=== PATIENT | male | born 1955 | race Caucasian/White ===

== ENCOUNTER 2020-10-04 12:11 | Outpatient (REF) | payer OTHER, SELFPAY ==
--- NOTE | ~2020-10-04 | XR_ITS ---
EXAMINATION: XR CHEST CLINICAL INFORMATION: Cough COMPARISON: None TECHNIQUE: 2 views of the chest were obtained. FINDINGS: No significant abnormality is noted involving the heart, lungs, mediastinum, bony thorax or soft tissues. XR/XR chest 2V IMPRESSION: Unremarkable examination.
[2020-10-04 14:07] LABS: Glucose Urine UA NEG (NEG); Leukocyte Esterase Urine NEG (NEG); Nitrite Urine NEG (NEG); Specific Gravity - Urine <= 1.005 (1.005-1.025); Urine Blood NEG (NEG); Urine Ketones NEG (NEG); Urine Protein NEG (NEG-TRACE)
[2020-10-04 14:09] LABS: Appearance Urine CLEAR; Color Urine YELLOW
[2020-10-04 14:12] LABS: MANUAL DIFF FLAG NO
[2020-10-04 14:20] LABS: Basophils Percent Auto 0.3 % (0-2); Eosinophils Absolute Auto 0.2 X10*3/uL (0.0-0.4); Eosinophils Percent Auto 2.6 % (0-4); Hematocrit 42.8 % (42-52); Hemoglobin 14.5 g/dl (14.0-18.0); Imm Gran Abs Auto 0.01 X10*3/uL (0.00-0.03); Imm Gran Pct Auto 0.2 % (0.0-0.4); Lymphocytes Absolute Auto 3.1 X10*3/uL (1.2-4.9); Lymphocytes Percent Auto 49.4 % (20-40); Mean Corpuscular HGB Conc 33.9 g/dl (31.0-36.0); Mean Corpuscular Hemoglobin 31.7 pg (27.0-33.0); Mean Corpuscular Volume 93.4 fL (80-98); Mean Platelet Volume 10.6 fL (9.4-12.4); Monocytes Absolute Auto 0.4 X10*3/uL (0.1-1.2); Monocytes Percent Auto 7.1 % (2-11); Neutrophils Absolute Auto 2.5 X10*3/uL (2.0-8.3); Neutrophils Percent Auto 40.4 % (45-73); Platelet Count 205 X10*3/uL (160-400); Red Blood Count 4.58 X10*6/uL (4.60-5.80); Red Cell Distribution Width 12.3 % (11.0-16.0); White Blood Count 6.2 X10*3/uL (4.8-10.8)
[2020-10-04 14:38] LABS: Alanine Aminotransferase 15 U/L (0-40); Albumin Level 4.2 g/dL (3.5-5.0); Alkaline Phosphatase 54 U/L (39-117); Anion Gap 11 (12-20); Aspartate Amino Transferase 19 U/L (5-37); Bilirubin Total 1.3 mg/dL (0.0-1.0); Blood Urea Nitrogen 18 mg/dL (9-16); Calcium 9.3 mg/dL (8.4-10.2); Carbon Dioxide 25 mmol/L (22-29); Chloride 106 mmol/L (96-108); Estimated Glomerular Filt Rate > 60; Glucose Random 91 mg/dL (60-115); Potassium 4.1 mmol/L (3.3-5.1); Sodium 138 mmol/L (135-145); Total Protein 6.8 g/dL (6.5-8.0)
[2020-10-04 15:00] LABS: Prostate Specific Antigen Scr 0.27 ng/mL (<0.05-4.0); TSH reflex Free T4 2.67 uIU/mL (0.32-4.0); Vitamin D 25-OH Total 55.5 ng/mL (>30)
== END 2020-10-04 12:12 | disposition home or self-care (01) ==
LOC: HO.HMGCX 12:11
PROVIDERS: PCP Nurse Practitioner Family; Visit Provider Nurse Practitioner Family
DX: R05 Cough (principal); R82.90 Unspecified abnormal findings in urine; E55.9 Vitamin D deficiency, unspecified; Z12.5 Encounter for screening for malignant neoplasm of prostate
CPT/HCPCS: 36415; 71046; 80053; 81003; 82306; 84153; 84443; 85025; 87086

== ENCOUNTER 2021-11-23 12:29 | Outpatient (REF) | payer OTHER, SELFPAY | END 2021-11-23 12:30 | disposition home or self-care (01) | LOC: HO.HMGCLDS 12:29 | PROVIDERS: PCP Nurse Practitioner Family; Visit Provider Nurse Practitioner Family | DX: Z13.89 Encounter for screening for other disorder (principal) ==

== ENCOUNTER 2023-08-05 15:48 | Outpatient (AMB) | payer MEDICARE, SELFPAY ==
[2023-08-05 15:55] VITALS: BP 128/80; PULSE 91; TEMP 36.8; O2SAT 98; BMI 28.1
--- NOTE | 2023-08-05 15:55 | AM.OFFWIN_ITS ---
Intake Vital Signs 08/05/23 15:55 Height 5 ft 7 in Weight 179 lb 2 oz BMI 28.1 BP 128/80 Blood Pressure Location Rt brachial Position Sitting Pulse 91 Pulse Source Pulse Oximeter Temp 98.2 F Temp Source Oral Pulse Oximetry (%) 98 Oxygen Delivery Method Room Air Intake Visit Reasons: EP Cough, mucus Intake Note: Pt presents to the office today for c/o cough and green mucus, headache , and sinus pressure for about 10-14 days. Patient Tobacco Use Status: Never used Tobacco Allergies No Known Allergies Allergy (Verified 08/05/23 16:27) Medication List - Last Reconciled 08/05/23 by Papo Salgado MD No Known Home Meds HPI EP Cough, mucus HPI Details Patient presents for a sick visit. Reporting symptoms of sinus congestion, sore throat and difficulty swallowing. Low-grade fever. No family member is sick. No recent travel. Patient reports symptoms of malaise and fatigue. Reports not able to hear from both ears. 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 Head: Yes normal to inspection Eyes General: appearance normal, both eyes and all related structures Neck Neck: Yes normal visual inspection Chest Chest palpation & inspection: normal palpation of entire chest wall Resp Effort & Inspection: normal respiratory effort Neuro General: patient oriented x3 Office Procedures Cerumen Removal From which ear canal was the cerumen removed: left Removal: irrigation and otoscope w/curette [id number]-[id number] Wax Removal by Spoon/Curette Assessment & Plan Assessment & Plan (1) Cough: Code(s): R05 - Cough Plan: Antibiotics ordered. Increase fluid intake. Tylenol for aches and pains. If symptoms worsen, follow-up here for a recheck. Plan Patient tolerated the procedure well Orders: Orders AMB Cerumen Removal Today H61.23 - Impacted cerumen, bilateral Medications: New azithromycin take 500 mg today (day 1), then 250 mg for 4 days (days 2-5) PO 6 tabs 0RF Coding Level of Care Code Est Pt Level 3 (40810) Diagnoses Cough R05 CPT Codes Office Procedure - CPT: 22897-Cjf Wax Removal by Spoon/Curette ([id number])
== END 2023-08-05 16:37 | disposition home or self-care (01) ==
PROVIDERS: PCP Nurse Practitioner Family; Visit Provider Internal Medicine
DX: R05.9 Cough, unspecified (principal); H61.22 Impacted cerumen, left ear
CPT/HCPCS: 69210; 99213

== ENCOUNTER → 2023-10-22 15:26 | Outpatient (AMB) | payer MEDICARE, SELFPAY ==
[2023-10-22 15:28] VITALS: BP 128/78; PULSE 82; TEMP 36.8; O2SAT 98; BMI 28.2
--- NOTE | 2023-10-22 15:28 | MHC.PC.OV ---
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 This my 1st time meeting the patient Patient reports frequent headaches over the past 6 months, 3-4 times per week. Patient states that the pain usually starts in his neck, radiates up into his head. Denies any neurological symptoms, denies change in vision, denies dizziness, denies difficulty walking, denies any sensory or motor deficits at all. Denies chest pain denies shortness of breaths. On physical exam patient has paraspinal cervical muscles pain with rotation of neck. He states that he gets relief with ibuprofen Tylenol however he does want to keep taking this medication. He does not want medication at this time. Will obtain cervical spine x-ray. Will obtain labs. The patient will likely be referred physical therapy. 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 1. Little interest or pleasure in doing things: not at all 2. Feeling down, depressed, or hopeless: not at all 3. Trouble falling or staying asleep, or sleeping too much: not at all 4. Feeling tired or having little energy: not at all 5. Poor appetite or overeating: not at all 6. Feeling bad about yourself - or that you are a failure or have let yourself or your family down: not at all 7. Trouble concentrating on things, such as reading the newspaper or watching television: not at all 8. Moving or speaking so slowly that other people could have noticed. Or the opposite - being so fidgety or restless that you have been moving around a lot more than usual: not at all 9. Thoughts that you would be better off or of hurting yourself in some way: not at all Total score: 0 Depression Screening Interpretation: Negative Depression Screening Done: Yes 26674 - PHQ-9 Billing: Yes Source: Developed by Drs. Nikhil Farrar, Naheed Rubio, Rock Varela and colleagues, with an educational ella from [employer]. Thrive Questionnaire Date Thrive assessed: 10/22/23 I am a: Patient What is your living situation today?: I have a steady place to live Within the past 12 months, did the food you bought not last and you didn't have the money to get more?: Never true Within the past 12 months, did you worry whether your food would run out before you got money to buy more?: Never true Do you have trouble paying for medicines?: No Do you have trouble getting transportation to medical appointments?: No Do you have trouble paying your heating and electricity bill?: No Do you have trouble taking care of your child, family member or friend?: No Do you have trouble with day-to-day activities such as bathing, preparing meals, shopping, managing finances, etc.?: No Are you currently unemployed and looking for a job?: No Are you interested in more education?: No Please select the resources that you would like help with: None Currently or been in a relationship where the following occur: no concerns reported THRIVE Score: 0 AUDIT C Alcohol Use Questionnaire (AUDIT-C) 1. How often do you have a drink containing alcohol?: 4 or more times a week 2. How many drinks containing alcohol do you have on a typical day when you are drinking?: 1 or 2 3. How often do you have six or more drinks on one occasion?: Never Total Score: 4 Score Reviewed/Action Taken: Yes KIMI-7 AMB Questionnaire KIMI-7 Date KIMI - 7 assessed: 10/22/23 Feeling nervous, anxious, or on edge: 0 = Not at all Not being able to stop or control worryin = Not at all Worrying too much about different things: 0 = Not at all Trouble relaxin = Not at all Being so restless that it is hard to sit still: 0 = Not at all Becoming easily annoyed or irritable: 0 = Not at all Feeling afraid as if something awful might happen: 0 = Not at all Total KIMI-7 score (0-4 normal; 5-9 mild; 10-14 moderate; 15-21 severe): 0 Source: Developed by Drs. Nikhil Farrar, Naheed Rubio, Rock Varela and colleagues, with an educational ella from [employer]. KIMI-7 Assessment Billing KIMI-7 Assessment Tool: KIMI-7 Assessment 04973 Review of Systems Const All systems reviewed & are unremarkable except as noted in HPI and below Reports headache(s) and Denies weakness Eyes Denies loss of vision ENT Denies dizziness and Reports headache(s) Musc Denies abnormal gait, Denies numbness and Denies tingling Neuro Denies Neuro-related abnormal movements, Denies Abnormal speech present, Denies abnormal gait, Denies dizziness, Reports headache(s), Denies lack of coordination, Denies loss of vision, Denies numbness, Denies Sensory deficit (Neuro), Denies tingling and Denies weakness Physical exam (Primary Care) Vital Signs: Last Vital Signs Temp 98.2 F 10/22/23 15:28 Pulse 82 10/22/23 15:28 BP 128/78 10/22/23 15:28 Pulse Ox 98 10/22/23 15:28 Care Plan Goal for BP management: BP is controlled. BMI result Body Mass Index 28.2 Tobacco/Smoking Status: Tobacco use Status Tobacco use date assessed 09/05/21 10/22/23 15:11 Patient Tobacco Use Status Never used Tobacco 10/22/23 15:11 e-Cigarette/Vaping Use Never Used 10/22/23 15:11 Depression Screening Interpretation: Negative Thrive Assessment: Date of Thrive Assessment Date Thrive assessed 09/05/21 10/22/23 15:11 Currently or been in a relationship where the following occur: no concerns reported Const Other: Appearance: Alert.? Oriented X3.? No acute distress.? Head: Normocephalic, atraumatic, no step-offs or deformities Eyes: Pupils equal, round and reactive to light.? CVS: Normal heart rate and rhythm.? Pulses normal.? Respiratory: No respiratory distress.? Breath sounds normal.? Back: No midline tenderness, no C-spine tenderness, Limited range of motion to rotation. + paraspinal muscle tenderness. Neuro: Oriented X 3.? No motor deficit.? No sensory deficit. CN 2-12 intact Orientation/consciousness: patient oriented x3 Eyes Pupils: Equal, round and reactive pupils present Neuro General: patient oriented x3 and CN's II-XI intact bilaterally Cranial nerves: Yes CN's II-XII intact bilaterally, Yes Facial sensation intact/muscles of mastication intact, Yes Equal, round and reactive pupils present, Yes Normal accommodation reflex present, Yes Bilaterally intact EOM present, Yes Nystagmus not present, Yes Normal facial strength present, Yes Midline tongue present and Yes Ability to bilaterally elevate shoulders present Cognition (Neuro): normal cognition Speech: No Abnormal speech present Gait exam (Neuro): Normal gait present Motor exam (neuro): 5/5 motor strength present throughout Sensory Exam: No Sensory deficit (Neuro) Assessment and Plan Assessment & Plan (1) Upper back pain: Comment: Will obtain cervical neck x-ray. Will refer to physical therapy Code(s): M54.9 - Dorsalgia, unspecified (2) Headache: Comment: Patient does not want medication at this time however when he does utilize [id number] ibuprofen or Tylenol him works with good effect. Likely that this is being exacerbated or caused by cervical paraspinal tenderness. Patient would like to utilize physical therapy. Code(s): R51.9 - Headache, unspecified Qualifiers: Headache type: unspecified Headache chronicity pattern: unspecified pattern Intractability: not intractable Qualified Code(s): R51.9 - Headache, unspecified Plan: Will draw labs. Plan Take your medications as prescribed. If you were prescribed antibiotics today, it is important that you take your medication to their entirety, do not skip any doses, do not finish them early. Follow-up with your primary care provider this week. Present to the emergency department with new or worsening symptoms. Such as fevers, chills, chest pain, shortness of breath, nausea, vomiting, dizziness, headache, vision changes, lethargy In case of emergency call 911 Orders: Orders XR cervical spine 3V Today M54.9 - Dorsalgia, unspecified PT Evaluation and Treatment Today M54.9 - Dorsalgia, unspecified Referrals Neurology Referral R51.9 - Headache, unspecified Coding Level of Care Code Est Pt Level 3 (92057) Diagnoses Upper back pain M54.9 Nonintractable headache, unspecified chronicity pattern, unspecified headache type R51.9 Headache type: unspecified Headache chronicity pattern: unspecified pattern Intractability: not intractable Additional Codes KIMI-7 Assessment Billing - KIMI-7 Assessment Tool: KIMI-7 Assessment [id number] ([id number]) Time Spent (min) 26
== END ==
PROVIDERS: PCP Nurse Practitioner Family; Visit Provider Nurse Practitioner Primary Care
DX: M54.9 Dorsalgia, unspecified (principal); R51.9 Headache, unspecified
CPT/HCPCS: 99213

== ENCOUNTER 2023-10-22 15:38 | Outpatient (REF) | payer MEDICARE, SELFPAY ==
--- NOTE | ~2023-10-22 | XR_ITS ---
EXAMINATION: XR CERVICAL SPINE CLINICAL INFORMATION: Cervicalgia. COMPARISON: Radiograph cervical spine 02/11/2017. TECHNIQUE: 3 views of the cervical spine were obtained. FINDINGS: Stable trace degenerative anterolisthesis at C4-C5. No evidence of acute compression deformity or traumatic subluxation. Multilevel cervical spondylosis that is greatest at the C5-C6 and C6-C7 levels manifested as intervertebral disc height loss, marginal osteophytes, uncovertebral joint spurring and hypertrophic facet arthropathy. Chronic calcification in the region of the nuchal ligaments at the level of C4-C6. No prevertebral soft tissue thickening. Included lung apices are clear. XR/XR cervical spine 3V IMPRESSION: 1. No acute compression deformity or traumatic subluxation. 2. Moderate to severe multilevel cervical spondylosis that is greatest at C5-C6 and C6-C7.
== END 2023-10-22 15:39 | disposition home or self-care (01) ==
LOC: HO.HMGCX 15:38
PROVIDERS: PCP Nurse Practitioner Family; Visit Provider Nurse Practitioner Primary Care
DX: M54.9 Dorsalgia, unspecified (principal)
CPT/HCPCS: 72040

== ENCOUNTER 2023-10-23 07:16 | Outpatient (REF) | payer MEDICARE, SELFPAY ==
[2023-10-23 11:13] LABS: MANUAL DIFF FLAG NO
[2023-10-23 11:32] LABS: Basophils Percent Auto 0.5 % (0-2); Eosinophils Absolute Auto 0.1 X10*3/uL (0.0-0.4); Eosinophils Percent Auto 2.3 % (0-4); Hematocrit 46.8 % (42.0-52.0); Hemoglobin 16.1 g/dl (14.0-18.0); Imm Gran Abs Auto 0.01 X10*3/uL (0.00-0.03); Imm Gran Pct Auto 0.2 % (0.0-0.4); Lymphocytes Percent Auto 47.6 % (20-40); Mean Corpuscular HGB Conc 34.4 g/dl (31.0-36.0); Mean Corpuscular Hemoglobin 31.4 pg (27.0-33.0); Mean Corpuscular Volume 91.4 fL (80.0-98.0); Mean Platelet Volume 10.5 fL (9.4-12.4); Monocytes Absolute Auto 0.5 X10*3/uL (0.1-1.2); Neutrophils Absolute Auto 2.6 x10*3/uL (2.0-8.3); Neutrophils Percent Auto 41.4 % (45-73); Platelet Count 215 X10*3/uL (160-400); Red Blood Count 5.12 X10*6/uL (4.60-5.80); Red Cell Distribution Width 12.4 % (11.0-16.0); White Blood Count 6.2 X10*3/uL (4.8-10.8)
[2023-10-23 11:32] LABS: Appearance Urine Clear; Color Urine Yellow; Glucose Urine UA Negative (Negative); Leukocyte Esterase Urine Negative (Negative); Nitrite Urine Negative (Negative); Urine Blood Negative (Negative); Urine Ketones Negative (Negative); Urine Protein Negative (Neg-Trace)
[2023-10-23 11:47] LABS: Alanine Aminotransferase 17 U/L (0-40); Albumin Level 4.4 g/dL (3.5-5.0); Alkaline Phosphatase 56 U/L (39-117); Anion Gap 12 (12-20); Aspartate Amino Transferase 18 U/L (5-37); Bilirubin Total 1.3 mg/dL (0.0-1.0); Blood Urea Nitrogen 22 mg/dL (9-16); Calcium 9.9 mg/dL (8.4-10.2); Carbon Dioxide 27 mmol/L (22-29); Chloride 106 mmol/L (96-108); Cholesterol 237 mg/dL (<200); Estimated Glomerular Filt Rate > 60; Glucose Fasting 96 mg/dL (60-99); HDL Cholesterol 47 mg/dL (>40); LDL Cholesterol Calculated 172 mg/dL (<100); Potassium 4.8 mmol/L (3.3-5.1); Sodium 140 mmol/L (135-145); Total Protein 7.4 g/dL (6.5-8.0); Triglycerides 94 mg/dL (<150)
[2023-10-23 11:56] LABS: Prostate Specific Antigen Scr 0.37 ng/mL (<0.05-4.0)
[2023-10-23 12:08] LABS: TSH reflex Free T4 3.33 uIU/mL (0.32-4.0); Vitamin D 25-OH Total 86.8 ng/mL (>30)
== END 2023-10-23 07:17 | disposition home or self-care (01) ==
LOC: HO.HMGCLDS 07:16
PROVIDERS: PCP Nurse Practitioner Family; Visit Provider Nurse Practitioner Family
DX: Z00.00 Encounter for general adult medical examination without abnormal findings (principal); E55.9 Vitamin D deficiency, unspecified; Z12.5 Encounter for screening for malignant neoplasm of prostate
CPT/HCPCS: 36415; 80053; 80061; 81003; 82306; 84153; 84443; 85025

== ENCOUNTER 2023-12-16 13:00 | Outpatient (RCR) | payer MEDICARE, SELFPAY ==
--- NOTE | 2023-12-06 08:57 | MHC.PT.EP ---
[facility] [place] Office [place] Office [place] Office [address] Luis Armando Palomino [address] [phone] F: [phone] F: [phone] F: [phone] F: [phone] Physical Therapy Plan of Care Date of Evaluation: 12/06/23 Date of Surgery: Diagnosis: Dorsalgia upper back pain Assessment: 67 y/o male referred to PT with dorsalgia. S/s consistent with cervical dysfunction resulting in pain with ADL's, sitting, standing, phone use. Examination shows decreased cervical ROM, decreased thoracic ROM, scapular weakness, muscle spasm, and pain. Recommend PT 2x/week for 5 weeks to address impairments, implement HEP, and optimize functional mobility. 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 Manual therapy to restore motion and function. Therapeutic exercise to improve strength and flexibility. Neuromuscular re-education for posture and balance. Therapeutic activities to return to functional activities of daily living. Electronically signed by: Cristina Maharaj PT Please sign and return to therapist. Thank you for your referral.
--- NOTE | 2024-02-03 09:32 | MHC.PT.DC ---
[facility] [place] Office [place] Office [place] Office [address] Luis Armando Palomino [address] [phone] F: [phone] F: [phone] F: [phone] F: [phone] Physical Therapy Discharge Report Diagnosis: Dorsalgia upper back pain Date of Surgery: Date of Evaluation: 12/06/23 Date of Discharge: 02/03/24 Treatments to Date: 2 Cancellations to Date: 2 No Shows to Date: 1 Discharge Status: Patient Elected to Stop Visit Non-compliance Discharge Summary: Pt did not f/u with further visits following second visit and is d/c at this time. Electronically signed by: Cristina Maharaj PT Please sign and return to therapist. Thank you for your referral.
== END 2024-02-03 09:32 | disposition home or self-care (01) ==
LOC: HO.PTCHIC 13:00
PROVIDERS: PCP Nurse Practitioner Family; Visit Provider Nurse Practitioner Primary Care
DX: M54.9 Dorsalgia, unspecified (principal)
CPT/HCPCS: 97110; 97140; 97161

== ENCOUNTER 2023-12-18 09:39 | Outpatient (AMB) | payer MEDICARE, SELFPAY ==
--- NOTE | 2023-12-18 09:45 | A.OFFPC_ITS ---
Vital Signs 12/18/23 09:46 Height 5 ft 7 in Weight 172 lb BMI 26.9 BP 120/72 Blood Pressure Location Rt brachial Position Sitting Pulse 73 Pulse Source Pulse Oximeter Pulse Oximetry (%) 97 Oxygen Delivery Method Room Air Intake Visit Reasons: Annual PE Intake Note: pt is here for annual exam Worm Grower Required: No Accompanied by: Self / Same As Patient Allergies No Known Allergies Allergy (Verified 12/18/23 09:54) Medication List - Last Reconciled 12/18/23 by RADHA García No Known Home Meds Tobacco use date assessed: 10/22/23 Fall risk assessment: No Falls in past year Last assessed Fall Risk: 12/18/23 Dental Screening Dental Screen Date: 10/22/23 HPI Annual PE HPI Details Pt is here for a PE. Will order labs. Colon screen is up to date. PSA is up to date. Denies dribbling with urination, weak stream, and frequent nocturia. Pt c/o ED. Will check testosterone. Will also send sildenafil. refuses MIKALA today. 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 1. Little interest or pleasure in doing things: not at all 2. Feeling down, depressed, or hopeless: not at all 3. Trouble falling or staying asleep, or sleeping too much: not at all 4. Feeling tired or having little energy: not at all 5. Poor appetite or overeating: not at all 6. Feeling bad about yourself - or that you are a failure or have let yourself or your family down: not at all 7. Trouble concentrating on things, such as reading the newspaper or watching television: not at all 8. Moving or speaking so slowly that other people could have noticed. Or the opposite - being so fidgety or restless that you have been moving around a lot more than usual: not at all 9. Thoughts that you would be better off or of hurting yourself in some way: not at all Total score: 0 Depression Screening Interpretation: Negative Depression Screening Done: Yes 76484 - PHQ-9 Billing: Yes Source: Developed by Drs. Nikhil Farrar, Naheed Rubio, Rock Varela and colleagues, with an educational ella from [employer]. Thrive Questionnaire Date Thrive assessed: 12/18/23 I am a: Patient What is your living situation today?: I have a steady place to live Within the past 12 months, did the food you bought not last and you didn't have the money to get more?: Never true Within the past 12 months, did you worry whether your food would run out before you got money to buy more?: Never true Do you have trouble paying for medicines?: No Do you have trouble getting transportation to medical appointments?: No Do you have trouble paying your heating and electricity bill?: No Do you have trouble taking care of your child, family member or friend?: No Do you have trouble with day-to-day activities such as bathing, preparing meals, shopping, managing finances, etc.?: No Are you currently unemployed and looking for a job?: No Are you interested in more education?: No Please select the resources that you would like help with: None Currently or been in a relationship where the following occur: No concerns reported THRIVE Score: 0 AUDIT C Alcohol Use Questionnaire (AUDIT-C) 1. How often do you have a drink containing alcohol?: 2-3 times a week 2. How many drinks containing alcohol do you have on a typical day when you are drinking?: 1 or 2 3. How often do you have six or more drinks on one occasion?: Never Total Score: 3 Score Reviewed/Action Taken: Yes KIMI-7 AMB Questionnaire KIMI-7 Date KIMI - 7 assessed: 12/18/23 Feeling nervous, anxious, or on edge: 0 = Not at all Not being able to stop or control worryin = Not at all Worrying too much about different things: 0 = Not at all Trouble relaxin = Not at all Being so restless that it is hard to sit still: 0 = Not at all Becoming easily annoyed or irritable: 0 = Not at all Feeling afraid as if something awful might happen: 0 = Not at all Total KIMI-7 score (0-4 normal; 5-9 mild; 10-14 moderate; 15-21 severe): 0 Source: Developed by Drs. Nikhil Farrar, Naheed Rubio, Rock Varela and colleagues, with an educational ella from [employer]. KIMI-7 Assessment Billing KIMI-7 Assessment Tool: KIMI-7 Assessment 58411 Review of Systems Const Denies chills and Denies fever(s) Eyes Denies blurry vision ENT Denies vertigo, Denies dizziness and Denies sore throat Card Denies chest pain at rest, Denies chest pain with activity, Denies diaphoresis, Denies dyspnea and Denies dyspnea on exertion Resp Denies cough, Denies dyspnea, Denies dyspnea on exertion and Denies wheezing GI Denies abdominal pain, Denies melena, Denies hematochezia, Denies constipation, Denies diarrhea and Denies loose stools Denies hematuria Musc Denies numbness and Denies tingling Skin/Breast Denies lesions Neuro Denies vertigo, Denies dizziness, Denies numbness and Denies tingling Psych Denies anxiety, Denies depression, Denies homicidal ideation, Denies suicidal ideation and Denies other (substance abuse) Aller/Immun Denies wheezing Physical exam (Primary Care) Vital Signs: Last Vital Signs Pulse 73 12/18/23 09:46 BP 120/72 12/18/23 09:46 Pulse Ox 97 12/18/23 09:46 Oxygen Delivery Method Room Air 12/18/23 09:46 BMI result Body Mass Index 26.9 Tobacco/Smoking Status: Tobacco use Status Tobacco use date assessed 10/22/23 12/18/23 09:47 Patient Tobacco Use Status Never used Tobacco 12/18/23 09:47 e-Cigarette/Vaping Use Never Used 12/18/23 09:47 PHQ-9: PHQ-9 Score PHQ-9: Total score 0 12/18/23 09:54 Depression Screening Interpretation: Negative Thrive Assessment: Date of Thrive Assessment Date Thrive assessed 12/18/23 12/18/23 09:47 Currently or been in a relationship where the following occur: No concerns reported Const General: cooperative Nutritional Appearance: well nourished Orientation/consciousness: patient oriented x3 HENMT Head: Yes normal to inspection, Yes normocephalic and Yes atraumatic Ears: TM's normal bilaterally Eyes General: appearance normal, both eyes and all related structures Alignment and Position: alignment normal and position normal Neck Neck: Yes normal visual inspection and Yes no lymphadenopathy Thyroid: Thyroid normal Resp Effort & Inspection: normal respiratory effort Auscultation: clear to auscultation bilaterally Cardio Rate: regular rate Rhythm: regular rhythm Heart sounds: S1 normal heart sound present, S2 normal heart sound present and no murmurs GI Palpation (GI): Soft to palpation and nontender Auscultation: normal bowel sounds Male General Exam: Yes normal external exam Penis: normal penis Scrotum: scrotum normal, testes descended bilaterally and no inguinal hernias Testes: no testicular mass Skin Rashes: no rashes Neuro General: patient oriented x3, moves all extremities, no focal motor deficits and deep tendon reflexes 2+ bilaterally Romberg Test: Negative Psych Appearance: grossly normal Mental Status: mental status grossly normal Speech and movement: Normal speech and movement present Affect: normal affect Attitude: cooperative Thought process: Normal thought process present Thought content: Normal thought content present Insight: Good insight present (Psych) Judgement: Good judgement present (Psych) Assessment and Plan Assessment & Plan (1) Physical exam: Code(s): Z00.00 - Encounter for general adult medical examination without abnormal findings Plan: Labs ordered (2) Erectile dysfunction: Code(s): N52.9 - Male erectile dysfunction, unspecified Plan: sildenafil sent to try Plan The patient agreed to the use of a medical transcriptionist for this encounter. Scribed for RADHA Munoz by Mojgan Malik medical transcriptionist, on 12/18/2023 at 10:00 EST. Orders: Orders Lipid Panel Today Z00.00 - Encounter for general adult medical examination without abnormal findings Complete Blood Count Auto Diff Today Z00.00 - Encounter for general adult medical examination without abnormal findings Comprehensive Robson. Panel Fast Today Z00.00 - Encounter for general adult medical examination without abnormal findings TSH reflex Free T4 Today Z00.00 - Encounter for general adult medical examination without abnormal findings UA CC w/rflx Micro + Cult Today Z00.00 - Encounter for general adult medical examination without abnormal findings Testosterone, Free/Total Today N52.9 - Male erectile dysfunction, unspecified Medications: New sildenafil administer 30 minutes to 4 hours before activity 25 mg PO DAILY PRN 12 tabs 0RF sexual activity sildenafil administer 30 minutes to 4 hours before activity 25 mg PO DAILY PRN 12 tabs 0RF sexual activity Coding Level of Care Code Est Pt Prev Care >65y(14700) Diagnoses Physical exam Z00.00 Erectile dysfunction N52.9 Additional Codes KIMI-7 Assessment Billing - KIMI-7 Assessment Tool: KIMI-7 Assessment 18835 ([id number])
[2023-12-18 09:46] VITALS: BP 120/72; PULSE 73; O2SAT 97; BMI 26.9
== END 2023-12-18 10:29 | disposition home or self-care (01) ==
PROVIDERS: PCP Nurse Practitioner Family; Visit Provider Nurse Practitioner Family
DX: Z00.00 Encounter for general adult medical examination without abnormal findings (principal); N52.9 Male erectile dysfunction, unspecified
CPT/HCPCS: 99397

== ENCOUNTER 2024-01-20 08:27 | Outpatient (REF) | payer MEDICARE, SELFPAY ==
[2024-01-20 10:12] LABS: Appearance Urine Clear; Color Urine Yellow; Glucose Urine UA Negative (Negative); Leukocyte Esterase Urine Negative (Negative); Nitrite Urine Negative (Negative); Specific Gravity - Urine 1.015 (1.005-1.025); Urine Blood Negative (Negative); Urine Ketones Negative (Negative); Urine Protein Negative (Neg-Trace)
[2024-01-20 10:29] LABS: MANUAL DIFF FLAG NO
[2024-01-20 10:35] LABS: Basophils Percent Auto 0.4 % (0-2); Eosinophils Absolute Auto 0.2 X10*3/uL (0.0-0.4); Eosinophils Percent Auto 3.6 % (0-4); Hematocrit 46.5 % (42.0-52.0); Imm Gran Abs Auto 0.01 X10*3/uL (0.00-0.03); Imm Gran Pct Auto 0.2 % (0.0-0.4); Lymphocytes Absolute Auto 2.2 X10*3/uL (1.2-4.9); Lymphocytes Percent Auto 40.2 % (20-40); Mean Corpuscular HGB Conc 34.4 g/dl (31.0-36.0); Mean Corpuscular Hemoglobin 31.8 pg (27.0-33.0); Mean Corpuscular Volume 92.4 fL (80.0-98.0); Mean Platelet Volume 10.5 fL (9.4-12.4); Monocytes Absolute Auto 0.3 X10*3/uL (0.1-1.2); Monocytes Percent Auto 6.2 % (2-11); Neutrophils Absolute Auto 2.7 x10*3/uL (2.0-8.3); Neutrophils Percent Auto 49.4 % (45-73); Platelet Count 211 X10*3/uL (160-400); Red Blood Count 5.03 X10*6/uL (4.60-5.80); Red Cell Distribution Width 12.8 % (11.0-16.0); White Blood Count 5.4 X10*3/uL (4.8-10.8)
[2024-01-20 11:31] LABS: Alanine Aminotransferase 18 U/L (0-40); Albumin Level 4.6 g/dL (3.5-5.0); Alkaline Phosphatase 57 U/L (39-117); Anion Gap 10 (12-20); Aspartate Amino Transferase 17 U/L (5-37); Bilirubin Total 1.6 mg/dL (0.0-1.0); Blood Urea Nitrogen 14 mg/dL (9-16); Calcium 9.8 mg/dL (8.4-10.2); Carbon Dioxide 27 mmol/L (22-29); Chloride 107 mmol/L (96-108); Cholesterol 234 mg/dL (<200); Estimated Glomerular Filt Rate > 60; Glucose Fasting 100 mg/dL (60-99); HDL Cholesterol 60 mg/dL (>40); LDL Cholesterol Calculated 154 mg/dL (<100); Potassium 4.3 mmol/L (3.3-5.1); Sodium 140 mmol/L (135-145); Total Protein 7.7 g/dL (6.5-8.0); Triglycerides 100 mg/dL (<150)
[2024-01-20 11:51] LABS: TSH reflex Free T4 2.65 uIU/mL (0.32-4.0)
[2024-01-25 12:48] LABS: Testosterone, Free 55.6 pg/mL (35.0-155.0); Testosterone, Total 501 ng/dL (250-1100)
== END 2024-01-20 08:28 | disposition home or self-care (01) ==
LOC: HO.HMGCLDS 08:27
PROVIDERS: PCP Nurse Practitioner Family; Visit Provider Nurse Practitioner Family
DX: Z00.00 Encounter for general adult medical examination without abnormal findings (principal); N52.9 Male erectile dysfunction, unspecified
CPT/HCPCS: 36415; 80053; 80061; 81003; 84402; 84403; 84443; 85025

== ENCOUNTER 2024-02-04 08:48 | Outpatient (REF) | payer MEDICARE, SELFPAY ==
--- NOTE | ~2024-02-04 | US_ITS ---
EXAMINATION: US ABDOMEN COMPLETE CLINICAL INFORMATION: Unspecified jaundice. COMPARISON: CT abdomen and pelvis 06/02/2016. TECHNIQUE: Real-time imaging of the abdominal viscera. FINDINGS: PANCREAS: Normal. ABDOMINAL AORTA: The proximal, mid, and distal segments are normal in caliber. INFERIOR VENA CAVA: Visualized portions are normal. LIVER: Multiple echogenic focus in the left lobe anteriorly at 6 x 7 x 7 mm likely a tiny hemangioma. No other masses are observed. Echotexture normal. There is no intrahepatic biliary dilatation. GALLBLADDER: The gallbladder is physiologically distended. Multiple mobile gallstones are present. The largest measure approximately 9 x 10 mm. No evidence of gallbladder wall thickening or pericholecystic fluid. Note that gallstones were present on a prior CT dated 06/02/2016. COMMON BILE DUCT: Normal in caliber measuring 0.4 cm in diameter. RIGHT KIDNEY: Normal. No hydronephrosis. No renal calculi or focal parenchymal lesions. The kidney measures 11.0 cm in maximum dimension. LEFT KIDNEY: No hydronephrosis or focal parenchymal lesions. The kidney measures 12.8 cm in maximum dimension. Interpolar cyst at 3 and 4 mm respectively are noted. SPLEEN: Normal. The spleen measures 10.3 cm in maximum dimension. FREE FLUID: None. US/US abdomen complete IMPRESSION: Gallstones. No biliary dilatation. Electronically signed by: Coy Saldivar MD 03/17/2024 10:31 AM BUCKY
[2024-02-04 10:10] LABS: Immature Retic Fraction 4.6 % (2.3-13.4); Retic HGB Equivalent 36.3 pg (30.0-35.0); Reticulocyte Percent 0.8 % (0.5-1.8); Reticulocytes Absolute 0.037 X10*6/uL (0.026-0.095)
[2024-02-04 10:50] LABS: Bilirubin Direct 0.3 mg/dL (0.0-0.5); Bilirubin Total 1.4 mg/dL (0.0-1.0)
[2024-02-04 10:54] LABS: Haptoglobin 79 mg/dL (40-268)
[2024-02-04 11:29] LABS: Lactate Dehydrogenase 180 U/L (118-273)
[2024-02-07 19:34] LABS: Mercury, Blood <4 mcg/L (<=10)
== END 2024-02-04 08:49 | disposition home or self-care (01) ==
LOC: HO.HMGCX 08:48
PROVIDERS: PCP Nurse Practitioner Family; Visit Provider Nurse Practitioner Family
DX: R17 Unspecified jaundice (principal); R51.9 Headache, unspecified
CPT/HCPCS: 36415; 76700; 82247; 82248; 83010; 83615; 83825; 85045

== ENCOUNTER 2024-08-28 08:54 | Outpatient (AMB) | payer MEDICARE, SELFPAY ==
[2024-08-28 09:18] VITALS: BP 124/70; PULSE 71; TEMP 36.6; O2SAT 98
--- NOTE | 2024-08-28 09:18 | MHC.OFFWIV ---
Intake Vital Signs 08/28/24 09:18 Weight 175 lb BP 124/70 Blood Pressure Location Rt brachial Position Sitting Pulse 71 Pulse Source Pulse Oximeter Temp 98 F Temp Source Oral Pulse Oximetry (%) 98 Oxygen Delivery Method Room Air Intake Visit Reasons: EP-head bite & b/l legs rash Intake Note: Patient here for bump on front of head that is tender and has been bothersome for about a week and would also like to have rash on right leg looked at Patient Tobacco Use Status: Never used Tobacco Allergies No Known Allergies Allergy (Verified 08/28/24 09:21) Do you need a note to return to daycare/school/sports/work: No HPI HPI Comments History of Present Illness Details History of Present Illness - The patient is a 68-year-old male presenting with a tender lump on his head resembling a pimple, present for a week. - There is a suspicion, by the patient, of a tick bite due to occupational exposure; however, there is no visible entry point or sign of engorgement. 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 - The patient prefers to avoid antibiotic treatment due to prior unpleasant experiences and has not attempted topical treatments yet. - patient is also complaining of both of his legs being dry and itchy for the past 6 months. He did state that he started using a new red light type of therapy in his home around the same time the rash developed. He has been using different kinds of home remedies and hico-ndh-ejinjla oils with no resolution in symptoms. Physical Exam General: Cooperative, healthy appearing, comfortable, no acute distress and well developed Orientation: Patient oriented x3 Limitations: No limitations Head: frontal mid scalp 0.5cm papule, no erythema, smooth, somewhat firm, not fluctuant, no warmth, not mobile Ears: Hearing grossly normal bilaterally Nose: Normal External nose present Face and sinus: Normal facial exam Eyes: Appearance normal, both eyes and all related structures Neck: Normal visual inspection and Yes full ROM Respiratory: Normal respiratory effort and able to speak in complete sentences. Skin: see below Neuro: Patient oriented x3 Extremities: dry skin with scant pink pinpoint rash on anterior legs, no erythema, warmth or signs of infection noted. 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 Question whether this is infectious or reactive from some exposure or insect bite. Patient was reluctant to try course of antibiotics so we decided to try a topical steroid to start, if this does not work after 1 week, he will let us know and we can reassess. He will let us know if he develops any more concerning symptoms and this area or a fever. (2) Eczema: Code(s): L30.9 - Dermatitis, unspecified Qualifiers: Eczema type: unspecified Qualified Code(s): L30.9 - Dermatitis, unspecified Plan: Likely eczema, possibly from exposure to a new red light therapy he has been using at his home. We will use a topical steroid twice a day for 7 days. Medications: New triamcinolone acetonide 0.1% 1 appl topical BID 80 grams 0RF Coding Level of Care Code Est Pt Level 4 (01030) Diagnoses Head lump R22.0 Eczema, unspecified type L30.9 Eczema type: unspecified
--- OUTSIDE RECORDS SUMMARY | 2024-08-28 09:22 | XMS_ITS | Patient Health Record ---
Author Organization [facility] [place] Address [address] [place] [address] Care Team Providers Care Philosophy And Religion Instructor Name Role Phone Jimmie Sabillon Primary Care Provider Unafelipe Zara Pink Unavailable [phone] Allergies No Known Allergies Reason For Referral No Information Social History Tobacco Use: Social History Observation Description Date Details (start date - stop date) Never Smoker NA - NA Tobacco Use/Smoking Question Answer Notes Are you a: nonsmoker Additional Findings: Tobacco Non-User Aggressive non-smoker Alcohol Screen Question Answer Notes Did you have a drink contain ing alcohol in the past year? Yes How often did you have a dri nk containing alcohol in the past year? 2 to 4 times a month (2 points) Points 2 Interpretation Negative Tobacco use other than smoking: Question Answer Notes Are you an other tobacco user? No Plan Of Treatment Pending Test Test Name Order Date X ray : Foot, left 3V 09/07/2022 X ray : Foot, right 3V 09/07/2022 [id number] TENDON SHEATH/LIGAMENT 0 09/07/2022 Insurance Providers Payer Name Payer Address Payer Phone Subscriber Number Group Number Insured Name Patient Relationship to Insured Coverage Start Date Coverage End Date [employer] Medicare [id number] [address] [address] [place] [address] [id number] Yury Cooper Self - patient is the insured Medical (General) History Surgical History Surgery Date(Month/Year) Hospitalization History Reason Date(Month/Year)
== END 2024-08-28 09:45 | disposition home or self-care (01) ==
PROVIDERS: PCP Nurse Practitioner Family; Visit Provider Physician Assistant
DX: R22.0 Localized swelling, mass and lump, head (principal); L30.9 Dermatitis, unspecified

== ENCOUNTER → 2024-08-28 08:54 | Outpatient (BNVA) | payer MEDICARE, SELFPAY | PROVIDERS: PCP Nurse Practitioner Family; Visit Provider Physician Assistant | DX: R22.0 Localized swelling, mass and lump, head (principal); L30.9 Dermatitis, unspecified | CPT/HCPCS: 99212 ==

== ENCOUNTER 2024-09-03 15:11 | Outpatient (AMB) | payer MEDICARE, SELFPAY ==
--- NOTE | 2024-09-03 15:31 | AM.OFFWIN_ITS ---
Intake Vital Signs 3 09/03/24 15:37 Height 5 ft 7 in Weight 175 lb BMI 27.4 BP 110/68 Blood Pressure Location Rt brachial Position Sitting Pulse 65 Pulse Source Pulse Oximeter Pulse Oximetry (%) 98 Oxygen Delivery Method Room Air Intake Visit Reasons: EP- LT side head wound, infected?? Intake Note: Patient here for wound on left side of head that has gotten bigger and very red. Patient Tobacco Use Status: Never used Tobacco Allergies amoxicillin [From Augmentin] Adverse Reaction (Intermediate, Verified 09/03/24 15:42) GI upset clavulanic acid [From Augmentin] Adverse Reaction (Intermediate, Verified 09/03/24 15:42) GI upset Do you need a note to return to daycare/school/sports/work: No HPI HPI Comments 2 History of Present Illness0 Details 68 y/o Male patient who presents to the walk in clinic with c/o painful lump on left scalp. He was seen here 08/28 and was prescribed Steroid cream with no relief. Pt was reluctant then to take Abx due to GI side effects. 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 Small cyst filled with yellow fluid, erythematous and TTP. Neuro General: patient oriented x3, gait normal and moves all extremities Psych Speech and movement: Normal speech and movement present Assessment & Plan Assessment & Plan (1) Dermoid cyst of scalp: Code(s): D23.4 - Other benign neoplasm of skin of scalp and neck Plan: Clean the cyst, which was already draining Yellow Pus. Was able to squeeze the remaining fluid out. Applied warm compress to aid in more pus draining. Ordered Keflex for 5 days. Acetaminophne for pain relief. Medications: New 2 cephalexin 500 mg PO BID 10 caps 0RF 5 days D23.4 - Other benign neoplasm of skin of scalp and neck Coding Level of Care Code Est Pt Level 4 (95065) Diagnoses Dermoid cyst of scalp D23.4 Time Spent (min) 20
[2024-09-03 15:37] VITALS: BP 110/68; PULSE 65; O2SAT 98; BMI 27.4
--- OUTSIDE RECORDS SUMMARY | 2024-09-03 15:43 | XMS_ITS | Patient Health Record ---
Author Organization [facility] [place] Address [address] [place] [address] Care Team Providers Care Sustainability Coach Name Role Phone Jimmie Sabillon Primary Care Provider Unafelipe Zara Pink Unavailable [phone] Allergies No Known Allergies Reason For Referral [...] X ray : Foot, right 3V 09/07/2022 [id number] TENDON SHEATH/LIGAMENT 0 09/07/2022 Insurance Providers Payer Name Payer Address Payer Phone Subscriber Number Group Number Insured Name Patient Relationship to Insured Coverage Start Date Coverage End Date [employer] Medicare [id number] [address] [address] [place] [address] [id number] Yury Cooper Self - patient is the insured Medical (General) History Surgical History Surgery Date(Month/Year) Hospitalization History Reason Date(Month/Year)
== END 2024-09-03 16:13 | disposition home or self-care (01) ==
PROVIDERS: PCP Nurse Practitioner Family; Visit Provider Nurse Practitioner Family
DX: D23.4 Other benign neoplasm of skin of scalp and neck (principal)

== ENCOUNTER → 2024-09-03 15:11 | Outpatient (BNVA) | payer MEDICARE, SELFPAY | PROVIDERS: PCP Nurse Practitioner Family; Visit Provider Nurse Practitioner Family | DX: D23.4 Other benign neoplasm of skin of scalp and neck (principal) | CPT/HCPCS: 99212 ==

== ENCOUNTER 2024-11-23 16:06 | Outpatient (REF) | payer MEDICARE, SELFPAY ==
--- NOTE | ~2024-11-23 | XR_ITS ---
EXAMINATION: XR RIBS, RIGHT CLINICAL INFORMATION: S20.219A - Contusion of unspecified front wall of thorax, initial encounter COMPARISON: None available. TECHNIQUE: PA chest x-ray and 3 views of the right ribs were obtained. FINDINGS: Heart and stomach contours are within normal limits. Lungs are clear and well expanded. There is no sign of pneumothorax. Anterior right seventh rib demonstrates cortical disruption consistent with a fracture near the costochondral junction. XR/XR ribs RT min 3V w CXR1V IMPRESSION: Suspected acute fracture involving the anterior right seventh rib near the costochondral junction. Electronically signed by: Jared Schrader MD 11/23/2024 05:23 PM EDT
== END 2024-11-23 16:07 | disposition home or self-care (01) ==
LOC: HO.HMGCX 16:06
PROVIDERS: PCP Nurse Practitioner Family
DX: S20.211A Contusion of right front wall of thorax, initial encounter (principal)
CPT/HCPCS: 71101; 99212

== ENCOUNTER 2024-11-23 16:06 | Outpatient (AMB) | payer MEDICARE, SELFPAY ==
--- OUTSIDE RECORDS SUMMARY | 2024-11-23 16:13 | XMS_ITS | Patient Health Record ---
Author Organization [facility] [place] Address [address] [place] [address] Care Team Providers Care Ccie Name Role Phone Jimmie Sabillon Primary Care Provider Unafelipe Zara Pink Unavailable [phone] Allergies No Known Allergies Reason For Referral [...] X ray : Foot, right 3V 09/07/2022 [id number] TENDON SHEATH/LIGAMENT 0 09/07/2022 Insurance Providers Payer Name Payer Address Payer Phone Subscriber Number Group Number Insured Name Patient Relationship to Insured Coverage Start Date Coverage End Date [employer] Medicare [id number] [address] [address] [place] [address] [id number] Yury Cooper Self - patient is the insured Medical (General) History Surgical History Surgery Date(Month/Year) Hospitalization History Reason Date(Month/Year)
[2024-11-23 16:26] VITALS: BP 126/74; PULSE 61; TEMP 36.7; O2SAT 98; BMI 26.7
--- NOTE | 2024-11-23 16:26 | AM.OFFWIN_ITS ---
Intake Vital Signs 11/23/24 16:26 Height 5 ft 7 in Weight 170 lb 4 oz BMI 26.7 BP 126/74 Blood Pressure Location Rt brachial Position Sitting Pulse 61 Pulse Source Pulse Oximeter Temp 98.0 F Temp Source Oral Pulse Oximetry (%) 98 Oxygen Delivery Method Room Air Intake Visit Reasons: EP Broken ribs? Patient Tobacco Use Status: Never used Tobacco [facility] Director Required: No Allergies amoxicillin (From Augmentin) Adverse Reaction (Intermediate, Verified 11/23/24 16:31) GI upset clavulanic acid (From Augmentin) Adverse Reaction (Intermediate, Verified 11/23/24 16:31) GI upset Do you need a note to return to daycare/school/sports/work: No HPI HPI Comments History of Present Illness Details 68 y/o Male patient who presents to the walk in clinic with c/o Right sided chest wall contusion. Pt reports that he fell off his Trailer Track at higher angle and landed on the Side of Garbage Bin on the side Road. Pt uncomfortable and pain worse with breathing in/out. 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 Current occupational exposures/hazards: No Cognitive needs: No Hearing needs: No Vision needs: No Review of Systems Const All systems reviewed & are unremarkable except as noted in HPI and below Physical Exam Vital Signs: Last Vital Signs Temp 98.0 F 11/23/24 16:26 Pulse 61 11/23/24 16:26 BP 126/74 11/23/24 16:26 Pulse Ox 98 11/23/24 16:26 Oxygen Delivery Method Room Air 11/23/24 16:26 BMI result Body Mass Index 26.7 Const General: no acute distress; No comfortable Nutritional Appearance: well nourished Orientation/consciousness: patient oriented x3 Chest Chest palpation & inspection: no crepitus, no masses, tenderness rib and No Pacemaker present Resp Effort & Inspection: normal respiratory effort Auscultation: clear to auscultation bilaterally, no crackles, no rales, no rhonchi and no wheezes Cardio Heart sounds: S1 normal heart sound present and S2 normal heart sound present Neuro General: patient oriented x3 Assessment & Plan Assessment & Plan (1) Chest wall contusion: Code(s): S20.219A - Contusion of unspecified front wall of thorax, initial encounter Qualifiers: Encounter type: initial encounter Laterality: right Qualified Code(s): S20.211A - Contusion of right front wall of thorax, initial encounter Plan: Ordered Chest Xray to r/o Rib Fx Ordered Tramadol and Meloxicam for pain control Ice/Hot Wrapped Torso with Stretchy bandage. Orders: Orders XR ribs RT min 3V w CXR1V Today S20.219A - Contusion of unspecified front wall of thorax, initial encounter Medications: New tramadol 50 mg PO Q8H 14 tabs 0RF pain S20.211A - Contusion of right front wall of thorax, initial encounter meloxicam 15 mg PO DAILY 20 tabs 0RF 14 days S20.211A - Contusion of right front wall of thorax, initial encounter Coding Level of Care Code Est Pt Level 4 (64702) Diagnoses Contusion of right chest wall, initial encounter S20.211A Encounter type: initial encounter Laterality: right Time Spent (min) 20
== END 2024-11-23 16:47 | disposition home or self-care (01) ==
PROVIDERS: PCP Nurse Practitioner Family; Visit Provider Nurse Practitioner Family
DX: S20.211A Contusion of right front wall of thorax, initial encounter (principal)

== ENCOUNTER → 2024-11-23 16:47 | Outpatient (BNV) | payer MEDICARE, SELFPAY | PROVIDERS: PCP Nurse Practitioner Family; Visit Provider Radiology Diagnostic Radiology | DX: R07.89 Other chest pain (principal) | CPT/HCPCS: 71101 ==

== ENCOUNTER 2024-12-29 09:14 | Outpatient (AMB) | payer MEDICARE, SELFPAY ==
[2024-12-29 09:21] VITALS: BP 126/70; PULSE 64; RESP 16; TEMP 36.6; O2SAT 98; BMI 26.8
--- NOTE | 2024-12-29 09:21 | A.OFFPC_ITS ---
Vital Signs 12/29/24 09:21 Height 5 ft 7 in Weight 171 lb BMI 26.8 BP 126/70 Respiration 16 Pulse 64 Pulse Source Pulse Oximeter Temp 97.8 F Temp Source Oral Pulse Oximetry (%) 98 Oxygen Delivery Method Room Air Intake Visit Reasons: PE - see comments Disk Grinder Required: No Accompanied by: Self / Same As Patient Allergies amoxicillin (From Augmentin) Adverse Reaction (Intermediate, Verified 12/29/24 09:22) GI upset clavulanic acid (From Augmentin) Adverse Reaction (Intermediate, Verified 12/29/24 09:22) GI upset Medication List - Last Reconciled 12/29/24 by MORRO García No Known Home Meds Tobacco use date assessed: 12/29/24 Fall risk assessment: 1 Fall in past year Last assessed Fall Risk: 12/29/24 Dental Screening Dental Screen Date: 12/29/24 Did you have a dental visit in the last 12 months?: Yes Was dental information given to patient?: Patient has dentist HPI PE - see comments HPI Details History of Present Illness The patient is a 69-year-old male presenting for a physical examination. He denies experiencing any chest pain, dyspnea, abdominal pain, hematochezia, constipation, diarrhea, or any psychiatric symptoms such as suicidal or homicidal ideation. He reports feeling generally well and maintains an active lifestyle. Recently, he underwent supplementary laboratory testing, which he financed personally, revealing concerns about iron overload. The plan includes further evaluation with a hemochromatosis panel, repeat iron level, and ferritin measurement. He is expected to provide these lab results soon, or alternatively, the physician will arrange for the necessary tests. Additionally, a PSA test and other routine labs will be conducted as part of the physical examination. His colon cancer screening is current, and he continues to feel well with stable vital signs. Health Maintenance - Hemochromatosis screening planned - PSA testing as part of routine examina tion - Colon cancer screening up to date Social History - Exercise: Maintains an active lifestyl e Review of Systems - Cardiovascular: Denies chest pain - Respiratory: Denies dyspnea - Gastrointestinal: Denies abdominal ashly n, hematochezia, constipation, diarrhea - Psychiatric: Denies suicidal ideation, homicidal ideation - Genitourinary: Denies urinary issues Physical Exam General: Cooperative, healthy appearing, comfortable, no acute distress and well developed Orientation: Patient oriented x3 Limitations: No limitations Head: Normal to inspection Ears: Hearing grossly normal bilaterally Nose: Normal external nose present Face and sinus: Normal facial exam Eyes: Appearance normal, both eyes and all related structures Neck: Normal visual inspection and Yes full ROM Respiratory: Normal respiratory effort and able to speak in complete sentences. Clear to auscultation bilaterally Cardiovascular: Regular rate and rhythm. Normal S1 and S2 GI: Normal to inspection. Soft to palpation and nontender : Testicles without masses/lesions and no hernias appreciated Skin: No rashes or lesions noted Neuro: Patient oriented x3 Extremities: Normal to inspection Results - Labs: Supplementary lab test indicatin g iron overload Plan 1. Iron Overload The patient reported concerns about iron overload from supplementary lab tests. A hemochromatosis panel, repeat iron level, and ferritin measurement are planned to further evaluate this condition. 2. Preventative Care Preventative measures include a PSA test and routine labs as part of the physical examination. The patient's colon cancer screening is up to date. Discussion Notes I discussed with the patient the need for further evaluation of the reported iron overload through a hemochromatosis panel, repeat iron level, and ferritin measurement. We also reviewed the importance of maintaining up-to-date preventative screenings, including PSA testing and colon cancer screening. Patient Instructions - Follow up with lab results for iron ov erload evaluation. - Continue with routine preventative scr eenings as discussed. 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 1. Little interest or pleasure in doing things: not at all 2. Feeling down, depressed, or hopeless: not at all 3. Trouble falling or staying asleep, or sleeping too much: not at all 4. Feeling tired or having little energy: not at all 5. Poor appetite or overeating: not at all 6. Feeling bad about yourself - or that you are a failure or have let yourself or your family down: not at all 7. Trouble concentrating on things, such as reading the newspaper or watching television: not at all 8. Moving or speaking so slowly that other people could have noticed. Or the opposite - being so fidgety or restless that you have been moving around a lot more than usual: not at all 9. Thoughts that you would be better off or of hurting yourself in some way: not at all Total score: 0 Depression Screening Interpretation: Negative Depression Screening Done: Yes 64983 - PHQ-9 Billing: Yes Source: Developed by Drs. Nikhil Farrar, Naheed Rubio, Rock Varela and colleagues, with an educational ella from [employer]. Thrive Questionnaire Date Thrive assessed: 12/18/23 I am a: Patient What is your living situation today?: I have a steady place to live Within the past 12 months, did the food you bought not last and you didn't have the money to get more?: Never true Within the past 12 months, did you worry whether your food would run out before you got money to buy more?: Never true Do you have trouble paying for medicines?: No Do you have trouble getting transportation to medical appointments?: No Do you have trouble paying your heating and electricity bill?: No Do you have trouble taking care of your child, family member or friend?: No Do you have trouble with day-to-day activities such as bathing, preparing meals, shopping, managing finances, etc.?: No Are you currently unemployed and looking for a job?: No Are you interested in more education?: No Please select the resources that you would like help with: None Currently or been in a relationship where the following occur: No concerns reported THRIVE Score: 0 AUDIT C Alcohol Use Questionnaire (AUDIT-C) 1. How often do you have a drink containing alcohol?: 2-3 times a week 2. How many drinks containing alcohol do you have on a typical day when you are drinking?: 1 or 2 3. How often do you have six or more drinks on one occasion?: Never Total Score: 3 Score Reviewed/Action Taken: Yes KIMI-7 AMB Questionnaire KIMI-7 Date KIMI - 7 assessed: 12/29/24 Feeling nervous, anxious, or on edge: 0 = Not at all Not being able to stop or control worryin = Not at all Worrying too much about different things: 0 = Not at all Trouble relaxin = Not at all Being so restless that it is hard to sit still: 0 = Not at all Becoming easily annoyed or irritable: 0 = Not at all Feeling afraid as if something awful might happen: 0 = Not at all Total KIMI-7 score (0-4 normal; 5-9 mild; 10-14 moderate; 15-21 severe): 0 Source: Developed by Drs. Nikhil Farrar, Naheed Rubio, Rock Varela and colleagues, with an educational ella from [employer]. KIMI-7 Assessment Billing KIMI-7 Assessment Tool: KIMI-7 Assessment 17158 Physical exam (Primary Care) Vital Signs: Last Vital Signs Temp 97.8 F 12/29/24 09:21 Pulse 64 12/29/24 09:21 Resp 16 12/29/24 09:21 BP 126/70 12/29/24 09:21 Pulse Ox 98 12/29/24 09:21 Oxygen Delivery Method Room Air 12/29/24 09:21 BMI result Body Mass Index 26.8 Tobacco/Smoking Status: Tobacco use Status Tobacco use date assessed 12/29/24 12/29/24 09:30 Patient Tobacco Use Status Never used Tobacco 12/29/24 09:30 e-Cigarette/Vaping Use Never Used 12/29/24 09:30 PHQ-9: PHQ-9 Score PHQ-9: Total score 0 12/29/24 09:30 Depression Screening Interpretation: Negative Thrive Assessment: Date of Thrive Assessment Date Thrive assessed 12/18/23 12/29/24 09:30 Currently or been in a relationship where the following occur: No concerns reported Coding Level of Care Code Est Pt Prev Care >65y(24504) Diagnoses Physical exam Z00.00 Iron overload E83.19 Additional Codes KIMI-7 Assessment Billing - KIMI-7 Assessment Tool: KIMI-7 Assessment 50877 ([id number]) PHQ-9 - 40548 - PHQ-9 Billing: Yes ([id number]) Assessment & Plan Assessment & Plan (1) Physical exam: Code(s): Z00.00 - Encounter for general adult medical examination without abnormal findin gs Category: Medical (2) Iron overload: Code(s): E83.19 - Other disorders of iron metabolism Category: Medical Plan . Orders: Orders Ferritin Today E83.19 - Other disorders of iron metabolism IRON PROFILE Today E83.19 - Other disorders of iron metabolism DNA Analysis Hemochromatosis Today E83.19 - Other disorders of iron metabolism
--- OUTSIDE RECORDS SUMMARY | 2024-12-29 10:08 | XMS_ITS | Patient Health Record ---
Author Organization [facility] [address] [place] Address [address] [place] [address] Care Team Providers Care Aquatics Specialist Name Role Phone Jimmie Sabillon Primary Care Provider Unafelipe Zara Pink Unavailable [phone] Allergies No Known Allergies Reason For Referral [...] X ray : Foot, right 3V 09/07/2022 [id number] TENDON SHEATH/LIGAMENT 0 09/07/2022 Insurance Providers Payer Name Payer Address Payer Phone Subscriber Number Group Number Insured Name Patient Relationship to Insured Coverage Start Date Coverage End Date [employer] Medicare [id number] [address] [address] [place] [address] [id number] Yury Cooper Self - patient is the insured Medical (General) History Surgical History Surgery Date(Month/Year) Hospitalization History Reason Date(Month/Year)
== END 2024-12-29 09:55 | disposition home or self-care (01) ==
LOC: HO.HMCC 09:15
PROVIDERS: PCP Nurse Practitioner Family; Visit Provider Nurse Practitioner Family
DX: Z00.00 Encounter for general adult medical examination without abnormal findings (principal); E83.19 Other disorders of iron metabolism

== ENCOUNTER → 2024-12-29 09:14 | Outpatient (BNVA) | payer MEDICARE, SELFPAY | PROVIDERS: PCP Nurse Practitioner Family; Visit Provider Nurse Practitioner Family | DX: Z00.00 Encounter for general adult medical examination without abnormal findings (principal); E83.19 Other disorders of iron metabolism | CPT/HCPCS: 96127; 99397 ==

== ENCOUNTER 2025-01-05 09:05 | Outpatient (REF) | payer MEDICARE, SELFPAY ==
[2025-01-05 10:06] LABS: MANUAL DIFF FLAG NO
[2025-01-05 10:09] LABS: Hematocrit 43.9 % (42.0-52.0); Hemoglobin 15.1 g/dl (14.0-18.0); Imm Gran Pct Auto 0.2 % (0.0-0.4); Mean Corpuscular HGB Conc 34.4 g/dl (31.0-36.0); Mean Corpuscular Hemoglobin 31.7 pg (27.0-33.0); Mean Corpuscular Volume 92.0 fL (80.0-98.0); Platelet Count 195 X10*3/uL (160-400); Red Blood Count 4.77 X10*6/uL (4.60-5.80); White Blood Count 5.4 X10*3/uL (4.8-10.8)
[2025-01-05 10:10] LABS: Imm Gran Abs Auto 0.01 X10*3/uL (0.00-0.03); Lymphocytes Absolute Auto 2.6 X10*3/uL (1.2-4.9); NRBC Abs Auto 0.000 X10*3/uL (0.0-0.012); NRBC Pct Auto 0.0 /100WBC (0.0-0.2)
--- OUTSIDE RECORDS SUMMARY | 2025-01-05 10:26 | XMS_ITS | Patient Health Record ---
Author Organization [facility] [address] [place] Address [address] [place] [address] Care Team Providers Care Apparel Patternmaker Name Role Phone Jimmie Sabillon Primary Care Provider Unafelipe Zara Pink Unavailable [phone] Allergies No Known Allergies Reason For Referral [...] X ray : Foot, right 3V 09/07/2022 [id number] TENDON SHEATH/LIGAMENT 0 09/07/2022 Insurance Providers Payer Name Payer Address Payer Phone Subscriber Number Group Number Insured Name Patient Relationship to Insured Coverage Start Date Coverage End Date [employer] Medicare [id number] [address] [address] [place] [address] [phone] [id number] Yury Cooper Self - patient is the insured Medical (General) History Surgical History Surgery Date(Month/Year) Hospitalization History Reason Date(Month/Year)
[2025-01-05 10:48] LABS: Alanine Aminotransferase 24 U/L (0-40); Albumin Level 4.6 g/dL (3.5-5.0); Alkaline Phosphatase 64 U/L (39-117); Anion Gap 12 (12-20); Aspartate Amino Transferase 26 U/L (5-37); Blood Urea Nitrogen 15 mg/dL (9-16); Calcium 9.4 mg/dL (8.4-10.2); Carbon Dioxide 26 mmol/L (22-29); Chloride 107 mmol/L (96-108); Cholesterol 229 mg/dL (<200); Estimated Glomerular Filt Rate > 60; HDL Cholesterol 58 mg/dL (>40); Iron 110 mcg/dL (45-160); Percent Iron Saturation 45 % (15-50); Potassium 4.9 mmol/L (3.3-5.1); Sodium 140 mmol/L (135-145); Total Iron Binding Capacity 245 mcg/dL (228-428); Total Protein 7.3 g/dL (6.5-8.0); Triglycerides 66 mg/dL (<150); Unsaturated Iron Binding 135 ug/dL
[2025-01-05 11:07] LABS: Ferritin 177 ng/mL (20-250)
[2025-01-05 16:25] LABS: Appearance Urine Clear; Glucose Urine UA Negative (Negative); PH 6.5 (5.0-9.0); Specific Gravity - Urine <= 1.005 (1.005-1.025)
== END 2025-01-05 09:06 | disposition home or self-care (01) ==
LOC: HO.HMGCLDS 09:05
PROVIDERS: PCP Nurse Practitioner Family; Visit Provider Nurse Practitioner Family
DX: Z00.00 Encounter for general adult medical examination without abnormal findings (principal); E55.9 Vitamin D deficiency, unspecified; Z12.5 Encounter for screening for malignant neoplasm of prostate; Z13.6 Encounter for screening for cardiovascular disorders; Z13.29 Encounter for screening for other suspected endocrine disorder
CPT/HCPCS: 36415; 80053; 80061; 81003; 81256; 82306; 82728; 83540; 84153; 84443; 85025

== ENCOUNTER 2025-02-01 10:27 | Outpatient (REF) | payer MEDICARE, SELFPAY ==
--- NOTE | ~2025-02-01 | XR_ITS ---
EXAMINATION: XR KNEE 1-2 VIEWS RIGHT HISTORY: M25.561 - Pain in right knee COMPARISON: There are no prior studies available for comparison. FINDINGS: AP and lateral views of the right knee are submitted. Osseous mineralization is normal. There is no fracture or dislocation. The joint spaces are preserved. The soft tissues are unremarkable. There is no joint effusion. XR/XR knee RT 2V IMPRESSION: Unremarkable examination of the right knee. Electronically signed by: Nikhil Nation MD 02/01/2025 10:41 AM EDT
--- OUTSIDE RECORDS SUMMARY | 2025-02-01 12:18 | XMS_ITS | Patient Health Record ---
Author Organization [facility] [place] Address [address] [place] [address] Care Team Providers Care Diet Supervisor Name Role Phone Jimmie Sabillon Primary Care Provider Unafelipe Zara Pink Unavailable [phone] Allergies No Known Allergies Reason For Referral [...] X ray : Foot, right 3V 09/07/2022 [id number] TENDON SHEATH/LIGAMENT 0 09/07/2022 Insurance Providers Payer Name Payer Address Payer Phone Subscriber Number Group Number Insured Name Patient Relationship to Insured Coverage Start Date Coverage End Date [employer] Medicare [id number] [address] [address] [place] [address] [id number] Yury Cooper Self - patient is the insured Medical (General) History Surgical History Surgery Date(Month/Year) Hospitalization History Reason Date(Month/Year)
== END 2025-02-01 10:28 | disposition home or self-care (01) ==
LOC: HO.HMGCX 10:27
PROVIDERS: PCP Nurse Practitioner Family; Visit Provider Nurse Practitioner Family
DX: M25.561 Pain in right knee (principal)
CPT/HCPCS: 73560

== ENCOUNTER → 2025-02-01 10:30 | Outpatient (BNV) | payer MEDICARE, SELFPAY | PROVIDERS: PCP Nurse Practitioner Family; Visit Provider Radiology Diagnostic Radiology | DX: M25.561 Pain in right knee (principal) | CPT/HCPCS: 73560 ==